=== PATIENT | female | born 1970 | race Caucasian/White ===

== ENCOUNTER 2018-03-08 12:01 | Emergency (ER) | payer OTHER ==
[~2018-03-08] VITALS: Ht 157.5 cm; Wt 63.5 kg
[~2018-03-08 12:01] MED LIST: AMIT10; ATEN25 PO; ATEN50 PO; AZIT500 PO; Amitriptyline100 MG PO; Ativan1 MG PO; BISM300CH; CIPR500 PO; DICL100ER PO; ESOM20; ESOM20 PO; HYDACE10B PO; HYDACE5 PO; HYDCHL25 PO; HYDPAM50 PO; LISI10 PO; LISI20 PO; LISI5 PO; META800 PO; METO25ER PO; NAPR500 PO; OMEP10ER PO; ONDA4ODT MM; OXYACE5T PO; OXYACE7.5T PO; OXYC5 PO; PROM25 PO; RXANTBENOT AU; RXHYDACE PO; RXMETA800 PO; RXONDA4ODT MM; RXOXYACE PO; TRAACE PO; TRAM50 PO
[2018-03-08] MEDS ORDERED: FLONASE ALLERG9.9 ML (12:11)
[2018-03-08 12:50] LABS: Source, Urine Clean Catch
[2018-03-08 12:59] LABS: Bilirubin, Urine Neg (Neg); Blood, Urine 5+ (Neg); Glucose Qualitative, Urine Neg (Neg); Ketones, Urine Neg (Neg); Leukocyte Esterase, Urine 3+ (Neg); Nitrite, Urine Neg (Neg); Protein, Urine Neg (Neg); Specific Gravity, Urine 1.005 (1.003-1.022); Urobilinogen, Urine NORM (Normal)
[2018-03-08 13:13] LABS: Color, Urine Yellow (P-Yellow)
[2018-03-08 13:14] LABS: Appearance, Urine Cloudy (Clear)
[2018-03-08 13:17] LABS: White Blood Cells, Urine 50-100 /hpf (0-5)
[2018-03-08 13:18] LABS: Bacteria Many /hpf; Squamous Epithelial Cells Mod /hpf (Few)
[2018-03-08] MEDS ORDERED: Keflex500 MG PO (13:29)
== END 2018-03-08 13:33 | disposition home or self-care (01) ==
LOC: ER 12:01
PROVIDERS: Physician Assistant
DX: N39.0 Urinary tract infection, site not specified (principal); I10 Essential (primary) hypertension; F32.9 Major depressive disorder, single episode, unspecified; F17.210 Nicotine dependence, cigarettes, uncomplicated; Z88.6 Allergy status to analgesic agent; Z88.2 Allergy status to sulfonamides; Z79.899 Other long term (current) drug therapy
CPT/HCPCS: 81001; 87086; 99283

== ENCOUNTER 2019-01-09 07:09 | Day surgery (SDC) | payer OTHER ==
[~2019-01-09] VITALS: Ht 161 cm; Wt 63.1 kg
[~2019-01-09 07:09] MED LIST changes: +FLONASE ALLERG9.9 ML; +Keflex500 MG PO
--- NOTE | 2019-01-09 08:37 | NUR ---
DAY SURGERY RN | ADMIT AND TRANSFER TO RADIOLOGY Patient VSS. A/O. Rhythm strips taken and placed on chart. HR above parameters ordered. Metoprolol 5 mg IV push given per written orders from Giselle Parker. This RN informed by charge account clerk after inital push to get heart rate to 62 or less that radiology is ready for the patient and for this modified test, "they don't need medication to get heart rate lower". Nothing on the patient paperwork indicated a different procedure, and the meds were ordered and given per orders. fire fighters dispatcher aware of situation. Consent indicates normal CTA. Radiology aware of situation. Handoff to [employer].
== END 2019-01-09 22:45 | disposition home or self-care (01) ==
LOC: ORD 07:09 → CT 07:09 → ORD 07:30
DX: Q23.1 Congenital insufficiency of aortic valve (principal); J43.9 Emphysema, unspecified; Q27.8 Other specified congenital malformations of peripheral vascular system; Z88.2 Allergy status to sulfonamides; Z88.8 Allergy status to other drugs, medicaments and biological substances
CPT/HCPCS: 71275; Q9967

== ENCOUNTER 2021-11-13 15:31 | Emergency (ER) | payer OTHER ==
[~2021-11-13] VITALS: Ht 160 cm; Wt 68.0 kg
[~2021-11-13 15:31] MED LIST changes: -CIME400 PO
[2021-11-13 16:19] LABS: Source, Urine Clean Catch
[2021-11-13 16:21] LABS: Bilirubin, Urine Neg (Neg); Blood, Urine 1+ (Neg); Glucose Qualitative, Urine Neg (Neg); Ketones, Urine Neg (Neg); Leukocyte Esterase, Urine 1+ (Neg); Nitrite, Urine Neg (Neg); Protein, Urine Neg (Neg); Specific Gravity, Urine 1.005 (1.003-1.022); Urobilinogen, Urine NORM (Normal)
[2021-11-13 16:34] LABS: Appearance, Urine Clear (Clear); Color, Urine Pale Yellow (P-Yellow)
[2021-11-13 16:35] LABS: Bacteria Few /hpf; Squamous Epithelial Cells Rare /hpf (Few)
[2021-11-13] MEDS ORDERED: CIME400 PO (18:34)
[2021-11-13] MEDS ORDERED: ONDA4ODT MM (18:37)
== END 2021-11-13 19:08 | disposition home or self-care (01) ==
LOC: ER 15:31
PROVIDERS: Physician Assistant
DX: R11.2 Nausea with vomiting, unspecified (principal); R74.8 Abnormal levels of other serum enzymes; I10 Essential (primary) hypertension; F17.210 Nicotine dependence, cigarettes, uncomplicated; Z79.899 Other long term (current) drug therapy; Z88.2 Allergy status to sulfonamides; Z88.8 Allergy status to other drugs, medicaments and biological substances
CPT/HCPCS: 74177; 81001; 87086; 96374-59; 99284-25; A9270; J2405; Q9967

== ENCOUNTER → 2021-11-13 | Outpatient (CLI) | payer OTHER ==
[~2021-11-13] MED LIST changes: +CIME400 PO; +IBUP600 PO; +MOTION RELIEF25 MG PO; +PROC5 PO
[2021-11-13 15:01] LABS: BASOPHILS ABSOLUTE AUTO 0.04 K/mm3 (0.00-0.23); BASOPHILS PERCENT AUTO 1 % (0-2); EOSINOPHILS ABSOLUTE AUTO 0.01 K/mm3 (0.00-0.68); EOSINOPHILS PERCENT AUTO 0 % (0-6); Hemoglobin 14.5 g/dL (11.5-16.0); IMMATURE GRAN ABSOLUTE AUTO 0.02 K/mm3 (0.00-0.10); IMMATURE GRAN PERCENT AUTO 0 % (0-1); LYMPHOCYTES ABSOLUTE AUTO 2.38 K/mm3 (0.84-5.20); LYMPHOCYTES PERCENT AUTO 27 % (21-46); MONOCYTES ABSOLUTE AUTO 0.48 K/mm3 (0.16-1.47); MONOCYTES PERCENT AUTO 6 % (4-13); Mean Corpuscular HGB 29.1 pg (26.0-34.0); Mean Corpuscular Volume 88 fL (80-100); Mean Platelet Volume 10.6 fL (9.1-12.4); NEUTROPHILS ABSOLUTE AUTO 5.86 K/mm3 (1.96-9.15); NEUTROPHILS PERCENT AUTO 67 % (41-73); Platelet Count 327 K/mm3 (150-400); RDW Coefficient Variation 14.3 % (11.7-14.2); RDW Standard Deviation 45.9 fL (35.1-46.3); Red Blood Cell Count 4.98 M/mm3 (3.80-5.20); White Blood Cell Count 8.79 K/mm3 (4.00-11.30)
[2021-11-13 15:24] LABS: Alanine Aminotransfer (ALT/SGP 74 U/L (12-78); Albumin, Blood 3.2 g/dL (3.4-5.0); Albumin/Globulin Ratio 0.8 (0.8-1.8); Alk Phos 557 U/L (50-136); Anion Gap 8 mmol/L (6-16); Aspartate Aminotrans (AST/SGOT 51 U/L (12-37); Bilirubin, Total 0.6 mg/dL (0.1-1.0); Blood Urea Nitrogen 3 mg/dL (8-24); Bun/Creatinine Ratio 5.4 (12.0-20.0); CO2, Blood 31 mmol/L (21-32); Calcium, Blood 8.4 mg/dL (8.5-10.1); Chloride, Blood 92 mmol/L (98-108); Creatinine, Blood 0.55 mg/dL (0.40-1.00); Globulin, Blood 3.8 g/dL (2.2-4.0); Glomerular Filtration Rate >60 (60-); Glucose, Blood 90 mg/dL (70-99); Potassium, Blood 3.8 mmol/L (3.5-5.5); Sodium, Blood 131 mmol/L (136-145)
== END | disposition home or self-care (01) ==
LOC: LAB SHORT 01:07
PROVIDERS: Nurse Practitioner Family
DX: R11.2 Nausea with vomiting, unspecified (principal); R42 Dizziness and giddiness
CPT/HCPCS: 80053; 83690; 85025

== ENCOUNTER 2022-05-01 08:30 | Day surgery (SDC) | payer OTHER ==
[~2022-05-01] VITALS: Ht 160 cm; Wt 67.7 kg
[~2022-05-01 08:30] MED LIST changes: +CIME400 PO
[2022-05-01] MEDS ORDERED: BISOPROLOL-HCT1 EAC1 (10:00)
[2022-05-01] MEDS ORDERED: ESCI10 (10:01)
== END 2022-05-01 11:09 | disposition home or self-care (01) ==
LOC: ORSCSDS 08:30
PROVIDERS: Internal Medicine Gastroenterology
PROC: 0DJD8ZZ Inspection of Lower Intestinal Tract, Via Natural or Artificial Opening Endoscopic (ICD-10-PCS; principal; 2022-05-01 10:15)
DX: R10.84 Generalized abdominal pain (principal); R11.2 Nausea with vomiting, unspecified; K59.00 Constipation, unspecified; Z83.71 Family history of colonic polyps; I10 Essential (primary) hypertension; Z79.82 Long term (current) use of aspirin; Z79.899 Other long term (current) drug therapy; F17.210 Nicotine dependence, cigarettes, uncomplicated
CPT/HCPCS: J2250; J2405; J2704; J7120

== ENCOUNTER 2022-06-07 11:24 | Inpatient (IN) | payer OTHER ==
[~2022-06-07] VITALS: Ht 160 cm; Wt 68.0 kg
[~2022-06-07 11:24] MED LIST changes: +BISOPROLOL-HCT1 EAC1; +ESCI10 PO
[2022-06-07 11:59] LABS: BASOPHILS ABSOLUTE AUTO 0.02 K/mm3 (0.00-0.23); BASOPHILS PERCENT AUTO 0 % (0-2); EOSINOPHILS PERCENT AUTO 0 % (0-6); Hematocrit 43.9 % (33.0-51.0); Hemoglobin 14.5 g/dL (11.5-16.0); IMMATURE GRAN ABSOLUTE AUTO 0.01 K/mm3 (0.00-0.10); IMMATURE GRAN PERCENT AUTO 0 % (0-1); LYMPHOCYTES PERCENT AUTO 21 % (21-46); MONOCYTES ABSOLUTE AUTO 0.17 K/mm3 (0.16-1.47); MONOCYTES PERCENT AUTO 3 % (4-13); Mean Corpuscular HGB 28.2 pg (26.0-34.0); Mean Corpuscular Volume 85 fL (80-100); Mean Platelet Volume 10.9 fL (9.1-12.4); NEUTROPHILS ABSOLUTE AUTO 4.23 K/mm3 (1.96-9.15); NEUTROPHILS PERCENT AUTO 75 % (41-73); Platelet Count 244 K/mm3 (150-400); RDW Coefficient Variation 14.2 % (11.7-14.2); Red Blood Cell Count 5.14 M/mm3 (3.80-5.20); White Blood Cell Count 5.63 K/mm3 (4.00-11.30)
[2022-06-07 12:20] LABS: Albumin/Globulin Ratio 0.9 (0.8-1.8); Bilirubin, Total 0.9 mg/dL (0.1-1.0); Bun/Creatinine Ratio 14.7 (12.0-20.0); Calcium, Blood 8.7 mg/dL (8.5-10.1); Creatinine, Blood 0.82 mg/dL (0.40-1.00); Globulin, Blood 3.5 g/dL (2.2-4.0); Potassium, Blood 3.4 mmol/L (3.5-5.5); Total Protein, Blood 6.5 g/dL (6.4-8.2)
[2022-06-07 16:55] LABS: Source, Urine Clean Catch
[2022-06-07 17:02] LABS: Appearance, Urine Clear (Clear); Bilirubin, Urine Neg (Neg); Blood, Urine 1+ (Neg); Color, Urine Yellow (P-Yellow); Glucose Qualitative, Urine Neg (Neg); Ketones, Urine Neg (Neg); Leukocyte Esterase, Urine Neg (Neg); Nitrite, Urine Neg (Neg); Protein, Urine 1+ (Neg); Specific Gravity, Urine 1.015 (1.003-1.022); Urobilinogen, Urine 2+ (Normal)
[2022-06-07 17:35] LABS: U Amphetamine Screen Not Detected; U Barbituate Screen Not Detected; U Benzodiazapine Screen Not Detected; U Buprenorphine Screen Not Detected; U Cannabinoids Screen Not Detected; U Cocaine Screen Not Detected; U Methadone Screen Not Detected; U Methamphetamine Screen Not Detected; U Opiates Screen Not Detected; U Oxycodone Screen DETECTED; U Phencyclidine Screen Not Detected; U Propoxyphene Screen Not Detected
[2022-06-07 17:49] LABS: Bacteria Few /hpf; Squamous Epithelial Cells Few /hpf (Few); White Blood Cells, Urine 0-2 /hpf (0-5)
--- NOTE | 2022-06-07 18:31 | NUR ---
SUMMARY PT ARRIVED TO ICU 1 FROM CATALOGUE LIBRARIAN AFTER ANGIOGRAM WITH STENT TO MID RCA. PT IS A/OX4, ANXIOUS, AND HAVING BACK PAIN WHICH SHE STATES IS NOT NEW FOR HER. DR. KATE CONSULTED FOR MED ORDERS. PT HAS TR BAND TO R WRIST THAT DEFLATION WAS STARTED ON. SHEATH TO R GROIN THAT WAS NOT PULLED DUE TO ACT BEING TOO HIGH IN CATALOGUE LIBRARIAN AND PTT TOO HIGH AT 1600. NEXT PTT DRAWN AT 1815. PT HAS HAD EPISODES WHERE SHE IS VERY ANXIOUS. SHE WILL BE SWEATING AND FIDGETING AND SOMETIMES YELLS OUT. PT STATES SHE IS NOT USUALLY ANXIOUS. DENIES CP OR PRESSURE. SHE WILL BE DOING OK THEN IT JUST HITS HER. ATIVAN GIVEN PER ORDERS. FENTANYL AND OXYCODONE GIVEN FOR CHRONIC BACK AND NECK PAIN WHICH MAKES IT DIFFICULT FOR PT TO SIT STILL IN BED. STATES PAIN MEDS ARE WORKING. PT EDUCATED TO NOT FLEX AT HIP OR NECK BUT HAVE FOUND PT WITH HIP FLEXED MULTIPLE TIMES. NO HEMATOMA OR SIGN OF BLEEDING AT SITE. WATCHING TV FOR DISTRACTION NOW, NO SIGN OF DISTRESS AT THE MOMENT.
--- NOTE | 2022-06-07 19:00 | NUR ---
ASSUMED CARE OF PT, BEDSIDE REPORT RECEIVED. IVF NOTED NS INFUSING AT 50 ML/HR CONCURRENTLY WITH POTASSIUM 20 MEQ/100ML AT 25 ML/HR, OFFGOING RN REPORTS PT C/O BURNING WITH POTASSIUM INFUSION AND RATE WAS DECREASED FOR PT COMFORT. RIGHT RADIAL ACCESS SITE REVIEWED WITH OFFGOING RN, REPORTS DEFLATION IN PROGRESS WITH APPROXIMATELY 4 ML AIR REMAINING IN TR BAND, 2 ML REMOVED DURING BEDSIDE REPORT, SITE REMAINS STABLE WITHOUT BLEEDING, WILL CONT TO MONITOR AND DEFLATE TOLERATED. RIGHT GROIN ACCESS SITE AND SHEATH REVIEWED WITH OFFGOING RN. PT REPORTS PAIN WITH PALPATION OF SITE, PER OFFGOING RN, THIS HAS BEEN ONGOING WITHOUT CHANGES SINCE PT ARRIVED TO ICU FROM CREMATORY ATTENDANT, PT ALSO DENIES CHANGES, SITE SOFT WITHOUT EVIDENCE OF HEMATOMA, SMALL AMOUNT OF SURFACE BLEEDING IS NOTED FROM AROUND SHEATH UNDER CLEAR DRESSING, WILL MONITOR. PT DENIES CP/PRESSURE, DENIES SOB/DYSPNEA, DID HAVE SOME ANXIETY EARLIER IN THE DAY RELATED TO POSITIONING RESTRICTIONS WITH SHEATH IN PLACE, PT AND OFFGOING RN REPORT THAT ANXIETY IS GREATLY IMPROVED AT THIS TIME. MOVEMENT RESTRICTIONS AND REASONS FOR THEM ARE REVIEWED WITH PT AT THIS TIME, UNDERSTANDING IS VERBALIZED.
--- NOTE | 2022-06-07 19:59 | NUR ---
TR BAND DEFLATION COMPLETED AT THIS TIME, SITE REMAINS STABLE, MOVEMENT RESTRICTIONS TO RIGHT UPPER AND LOWER EXTREMITIES REVIEWED WITH PT, IMPORTANCE OF COMPLIANCE EXPLAINED, RISKS OF NONCOMPLIANCE EXPLAINED. PT VERBALIZED UNDERSTANDING. HYPERTENSION ONGOING, HYDRALAZINE ADMIN PER ORDERS, WILL MONITOR.
--- NOTE | 2022-06-07 23:24 | NUR ---
RIGHT FEMORAL SHEATH REMOVAL SHEATH REMOVED AT 2158, DIRECT PRESSURE HELD X 20 MINUTES, SITE REMAINED STABLE THROUGHOUT, NO BLEEDING NOTED POST PRESSURE, SITE CLEANSED WITH CHLORAPREP SWAB, SKIN BARRIER APPLIED, AND CLEAR DRESSING PLACED, PT TOLERATED WELL. SITE CONTINUES TO REMAIN STABLE AT 5-10 MINUTE INTERVAL ASSESSMENTS, PT NOTED RESTING QUIETLY. WILL CONT TO MONITOR.
[2022-06-08 03:17] LABS: BASOPHILS ABSOLUTE AUTO 0.02 K/mm3 (0.00-0.23); BASOPHILS PERCENT AUTO 0 % (0-2); EOSINOPHILS PERCENT AUTO 0 % (0-6); Hematocrit 45.6 % (33.0-51.0); Hemoglobin 15.2 g/dL (11.5-16.0); IMMATURE GRAN ABSOLUTE AUTO 0.02 K/mm3 (0.00-0.10); IMMATURE GRAN PERCENT AUTO 0 % (0-1); LYMPHOCYTES ABSOLUTE AUTO 1.49 K/mm3 (0.84-5.20); LYMPHOCYTES PERCENT AUTO 18 % (21-46); MONOCYTES ABSOLUTE AUTO 0.49 K/mm3 (0.16-1.47); MONOCYTES PERCENT AUTO 6 % (4-13); Mean Corpuscular HGB 28.1 pg (26.0-34.0); Mean Corpuscular HGB Conc 33.3 g/dL (31.5-36.5); Mean Corpuscular Volume 84 fL (80-100); NEUTROPHILS ABSOLUTE AUTO 6.18 K/mm3 (1.96-9.15); NEUTROPHILS PERCENT AUTO 75 % (41-73); Platelet Count 246 K/mm3 (150-400); RDW Coefficient Variation 14.4 % (11.7-14.2); RDW Standard Deviation 43.4 fL (35.1-46.3)
[2022-06-08 03:34] LABS: Alanine Aminotransfer (ALT/SGP 354 U/L (12-78); Albumin, Blood 3.1 g/dL (3.4-5.0); Albumin/Globulin Ratio 0.8 (0.8-1.8); Alk Phos 693 U/L (50-136); Anion Gap 9 mmol/L (6-16); Aspartate Aminotrans (AST/SGOT 245 U/L (12-37); Bilirubin, Total 1.6 mg/dL (0.1-1.0); Blood Urea Nitrogen 11 mg/dL (8-24); Bun/Creatinine Ratio 16.1 (12.0-20.0); CHOL/HDL RATIO 3.2; CO2, Blood 21 mmol/L (21-32); Calcium, Blood 8.5 mg/dL (8.5-10.1); Chloride, Blood 108 mmol/L (98-108); Cholesterol 242 mg/dL (50-200); Creatinine, Blood 0.69 mg/dL (0.40-1.00); Globulin, Blood 3.7 g/dL (2.2-4.0); Glomerular Filtration Rate 105 (60-); Glucose, Blood 108 mg/dL (70-99); HDL Cholesterol 76 mg/dL (>39); LDL/HDL RATIO 1.8; Low Density Lipoprotein Chol 136 mg/dL (0-110); Magnesium, Blood 1.6 mg/dL (1.6-2.4); Potassium, Blood 3.6 mmol/L (3.5-5.5); Sodium, Blood 138 mmol/L (136-145); Total Protein, Blood 6.8 g/dL (6.4-8.2); Triglycerides 150 mg/dL (30-160); Very Low Density Lipoprot Chol 30 mg/dL (6-32)
--- NOTE | 2022-06-08 06:44 | NUR ---
PT RESTS QUIETLY THROUGHOUT SHIFT, DISCOMFORT RELATED TO BEDREST IS IMPROVED AFTER RIGHT GROIN SHEATH WAS REMOVED AND SITE RECOVERED. SHEATH WAS REMOVED AT 2158, HOB WAS RAISED TO 30 DEGREES AT 0300, PT UP TO TOILET WITH SBA AT 0500 THIS AM AND TOLERATED WELL. SITE HAS REMAINED STABLE THROUGHOUT NOC. RIGHT WRIST SITE REMAINS WNL, ARM BOARD REMAINS IN PLACE, PT DOES REQUIRE FREQUENT REMINDERS REGARDING MOVEMENT RESTRICTIONS TO RIGHT HAND. PT DENIES CP THROUGHOUT NOC, CONTINUES IN SINUS RHYTHM, RATE 70-80S, HYDRALAZINE 10 MG IV ADMINISTERED X 1 THIS SHIFT FOR SBP GREATER THAN 170, PT HAS NOT MAINTAINED GREATER THAN 170 WITH PAIN CONTROLLED SINCE HS.
--- NOTE | 2022-06-08 09:00 | NUR ---
ASSUME CARE NOTE: PT IS ALERT AND ORIENTED X4, ABLE TO COMMUNICATE NEEDS. PT C/O PAIN TO NECK STATES IT IS CHRONIC. 3/10 PAIN, ABLE TO TOLERATE. PT COMPLAINS OF NUMBNESS/TINGLINING TO LEFT ARM, PT STATES IT IS R/T NECK PAIN. PT CONTINUE TO BE ON RA WITH spO2 ABOVE 90%, NO RESP DISTRESS NOTED. PT IS ON HAND WOODWORKING SANDER, READING NSR WITH HR IN THE 70'S, SBP 150'S. AT BEDSIDE EVALUATING PT, ORDERS FOR CTA WITH RUNOFF OF PELVIS AND ABD GIVEN. RIGHT RADIAL ACCESS SITE FREE FROM SWELLING/OZZING/HEMATOMA, DRESSING IS DRY AND INTACT, PLUSE IS STRONG, PT DENIES NUMBNESS AND TINGLING TO RIGHT DIGITS. RIGHT FEMORAL ACCESS SITE IS FREE FROM SWELLING/HEMATOMA/BLEEDING, DRESSING DRY AND INTACT. NO CHANGE TO RLE FROM BASELINE. PT DOES HAVE A HISTORY OF SEVERE PAD. PT ON CARDIAC DIET, TOLERATING WELL. PT DOWNGRADED TO PCU STATUS, WILL CONTINUE TO MONITOR PT T/O SHIFT
[2022-06-08 13:56] LABS: Albumin, Blood 3.3 g/dL (3.4-5.0); Albumin/Globulin Ratio 0.9 (0.8-1.8); Bilirubin, Direct 0.3 mg/dL (0.0-0.3); Bilirubin, Indirect 0.6 mg/dL (0.1-0.7); Bilirubin, Total 0.9 mg/dL (0.1-1.0); Globulin, Blood 3.5 g/dL (2.2-4.0); Total Protein, Blood 6.8 g/dL (6.4-8.2)
--- NOTE | 2022-06-08 15:32 | NUR ---
RELINQISHED CARE OF PT AT 1525, REPORT GIVEN TO TRAFFIC ROUTING ENGINEER.
--- NOTE | 2022-06-08 16:50 | NUR ---
PT TRANSFERRED FROM ICU 1 TO PCU 7 REPORT RECEIVED FROM SUKI DORMAN. PT IS PAOST ANGIO 06/07 HAS RIGHT RADIAL AND RIGHT FEMORAL ACCESS SITE [address]ENT PLACED IN RRCA. PT IS ALERT AND ORIENTED X4, AMBULATORY IN THE ROOM. VITALS HRR SR 70'S T WAVE INVERTED, BP SYSTOLIC 140'S, SATS ABOVE 95% ON RA, AFEBRILE. PT DENIES ANY COMPLAINTS AT THIS TIME, COMFORTABLY RESTING IN BED. FOR POSSIBLE DISCHARGE IN AM IF STABLE. WILL REPORT TO ONCOMING SHIFT
--- NOTE | 2022-06-08 23:56 | NUR ---
Assess update R radial and R femoral site remain intact, no signs of bleeding. Pulses present. Pt denies numbness, tingling, or pain.
--- NOTE | 2022-06-09 07:49 | NUR ---
Shift Summary Pt AOx3, sleeps most of shift. Awakens easily to this RN at bedside. States she has been sleeping for days. Denies CP, breathing even and unlabored. Sinus Mil-Sinus Rhythm on monitor, down to 48 bpm while asleep. VS otherwise stable t/o shift. Pt's radial sites patent, no signs of bleeding.
[2022-06-09 08:41] LABS: Albumin, Blood 3.3 g/dL (3.4-5.0); Albumin/Globulin Ratio 0.8 (0.8-1.8); Bilirubin, Total 0.9 mg/dL (0.1-1.0); Bun/Creatinine Ratio 24.4 (12.0-20.0); Calcium, Blood 9.2 mg/dL (8.5-10.1); Creatinine, Blood 0.74 mg/dL (0.40-1.00); Potassium, Blood 3.7 mmol/L (3.5-5.5); Total Protein, Blood 7.3 g/dL (6.4-8.2)
[2022-06-09] MEDS ORDERED: TICA90TA PO (13:48)
[2022-06-09] MEDS ORDERED: ASPI81CH PO (13:49)
--- NOTE | 2022-06-09 16:08 | NUR ---
DISCHARGE NOTE THIS NURSE PROVIDED DISCHARGE INSTRUCTIONS TO PT INCLUDING MEDICATIONS TO TAKE PER 'S INSTRUCTIONS, FOLLOW UP APPOINTMENTS, AND PT EDUCATION REGARDING CAD, POST-ANGIO CARE, AND A HEART HEALTHY DIET. IV IN LEFT AC WAS REMOVED AND WAS WNL WITH NO SWELLING, BLEEDING, OR REDNESS. PT LEFT PCU APPROX. 1355 ESCORTED BY THIS NURSE AND WAS PICKED UP BY HER FATHER TO D/C HOME.
[2022-06-10 00:10] LABS: HBSAG SCREEN Negative (Negative); HCV AB <0.1 (0.0-0.9); HEP A AB, IGM Negative (Negative); HEP B CORE AB, IGM Negative (Negative)
== END 2022-06-09 14:02 | disposition home or self-care (01) | DRG 247 ==
LOC: ER 11:24 → ICUE 11:25 → ER 12:41 → PCU 12:41 → ICUE 14:10 → PCU 14:10 → ICUE 14:10 → PCU 06-08 15:26
PROVIDERS: Emergency Medicine; Family Medicine; ADMIT Internal Medicine Cardiovascular Disease
PROC: 4A023N7 Measurement of Cardiac Sampling and Pressure, Left Heart, Percutaneous Approach (ICD-10-PCS; principal; 2022-06-07)
PROC: 027034Z Dilation of Coronary Artery, One Artery with Drug-eluting Intraluminal Device, Percutaneous Approach (ICD-10-PCS; 2022-06-07)
PROC: B2111ZZ Fluoroscopy of Multiple Coronary Arteries using Low Osmolar Contrast (ICD-10-PCS; 2022-06-07)
PROC: B24BZZ3 Ultrasonography of Heart with Aorta, Intravascular (ICD-10-PCS; 2022-06-07)
DX: I21.4 Non-ST elevation (NSTEMI) myocardial infarction (principal); I10 Essential (primary) hypertension; F41.8 Other specified anxiety disorders; I35.0 Nonrheumatic aortic (valve) stenosis; R73.09 Other abnormal glucose; R74.8 Abnormal levels of other serum enzymes; R74.01 Elevation of levels of liver transaminase levels; E80.6 Other disorders of bilirubin metabolism; I24.9 Acute ischemic heart disease, unspecified; R94.31 Abnormal electrocardiogram [ECG] [EKG]; E87.6 Hypokalemia; R73.9 Hyperglycemia, unspecified; G89.29 Other chronic pain; Z87.891 Personal history of nicotine dependence; Z88.2 Allergy status to sulfonamides; Z88.8 Allergy status to other drugs, medicaments and biological substances; Z79.811 Long term (current) use of aromatase inhibitors; Z79.899 Other long term (current) drug therapy; Z90.49 Acquired absence of other specified parts of digestive tract; Z90.711 Acquired absence of uterus with remaining cervical stump; Z98.890 Other specified postprocedural states
CPT/HCPCS: 36415; 71045; 75635; 76937; 80053; 80061; 80074; 80076; 81001; 82248; 82947; 82977; 83036; 83735; 84100; 84443; 84484; 85025; 85347; 85379; 85730; 93005; 93010; 93454; 96365; 96366; 96367; 96375; 96376; 99152; 99153; 99285-25; A9270; C1725; C1769; C1874; C1887; C1894; C8929; C9600; G0378; J0360; J1644; J2250; J3010; J3475; J3480; J7030; J7040; J7050; Q9957; Q9967

== ENCOUNTER 2023-08-11 06:26 | Day surgery (SDC) | payer OTHER ==
[~2023-08-11] VITALS: Ht 160 cm; Wt 75.5 kg
[~2023-08-11 06:26] MED LIST changes: +ASPI81CH PO; +ATOR80 PO; +Aspir 8181 MG PO; +BISOPROLOL-HCT1 EACH PO; +Bisoprolol Fumar5 MG PO; +CLOP75 PO; +ESCI20 PO; +OXYC10TA19 PO; +TICA90TA PO
[2023-08-11] MEDS ORDERED: OXYC10TA19 PO (06:55)
--- NOTE | 2023-08-11 08:35 | NUR ---
08/11/23 0835 Charis Cano LIDOCAINE 2% WITH EPI 1:100,000 DILUTED 1:1 WITH NORMAL SALINE TO MAKE LIDOCAINE 1% WITH EPI 1:200,000 FOR INJECTION AT THE OPSITE BY DR RODGERS. 4ML OF EPI (1MG/ML) USED TO SOAK GELFOAM FOR USE AT THE OPSITE BY DR RODGERS. 1ML OF KENALOG (40MG/ML) MIXED WITH 2.5ML OF CIPROFLOXACIN 0.3% FOR USE AT THE OPSITE BY DR RODGERS.
[2023-08-11 11:49] VITALS: BP 119/56
--- NOTE | 2023-08-11 11:59 | NUR ---
08/11/23 1150 BRITTANY PATRICIA PT STATES THAT HER LEFT HAND IS ASLEEP. STATES THAT HAS ISSUES WITH NECK AND BACK.
== END 2023-08-11 12:38 | disposition home or self-care (01) ==
LOC: ORSCSDS 06:26
PROVIDERS: Otolaryngology
PROC: 0NB50ZZ Excision of Right Temporal Bone, Open Approach (ICD-10-PCS; principal; 2023-08-11 07:30)
PROC: 09Q90ZZ Repair Right Auditory Ossicle, Open Approach (ICD-10-PCS; principal; 2023-08-11 07:30)
DX: H71.01 Cholesteatoma of attic, right ear (principal); I10 Essential (primary) hypertension; E78.5 Hyperlipidemia, unspecified; I73.9 Peripheral vascular disease, unspecified; E78.00 Pure hypercholesterolemia, unspecified; Z79.899 Other long term (current) drug therapy; Z79.82 Long term (current) use of aspirin; Z79.02 Long term (current) use of antithrombotics/antiplatelets
CPT/HCPCS: 88304; A9270; J0171; J1100; J1885; J2405; J2704; J3010; J3301; J7120